=== PATIENT | female | born 1985 | race Caucasian/White ===

== ENCOUNTER → 2016-07-26 | Outpatient (CLI) | payer OTHER ==
--- NOTE | 2016-07-26 16:40 | REP ---
MRI LUMBAR SPINE WITHOUT CONTRAST: 07/26/2016. Clinical history: Low back pain, sacral ileitis, lumbar spondylosis. No prior study. Technique: Sagittal T1, T2 and STIR images with axial T1 and T2 sequences provided. Findings: The normal lumbar lordosis is maintained. Disc space is narrowed at L5-S1 with some loss of disc water signal. There are discogenic endplate changes at this level although mild. The disc space heights at the other levels show only slight narrowing at the T12-L1 level and loss of disc water signal. Vertebral body heights and marrow signal are normal throughout. Conus terminates at L1. The T11-12 level shows no disc bulge or herniation and no spinal or foraminal stenosis. At T12-L1 minimal disc bulge present without spinal or foraminal stenosis. At L1-2 there is mild broad-based disc bulge without central canal stenosis or foraminal encroachment. No disc herniation. At L2-L3 and L3-L4, there is no disc bulge or herniation and no spinal or foraminal stenosis. At L4-L5 there is a broad-based disc bulge with central disc protrusion with mild extrusion inferiorly in the midline. This indents the ventral thecal sac and abuts the L5 roots but does not displace. The cross-sectional area of the neural canal was adequate. The foramina show some loss of perineural fat but no definite nerve root compression of the L4 roots at this level. At L5-S1 there is a mild broad-based disc bulge that abuts the ventral thecal sac slightly indenting it but not the S1 nerve roots. Cross-sectional area of the canal adequate. The foramina are adequate without nerve root compression. Impression: 1. Multilevel degenerative disc disease greatest at L4-5. Disc bulge and extrusion centrally and with lesser disc bulging at L1-2. I do not see foraminal encroachment. The disc protrusion abuts the L5 roots in the central canal at L4-5. No definite nerve root compression in the foramina. No compression deformity or destructive lesion. Signed by Wil Mejia MD 07/26/2016 04:51 P
== END ==
LOC: M RAD 14:00
PROVIDERS: ATTEND Pain Medicine Interventional Pain Medicine
DX: M54.5 Low back pain (principal)

== ENCOUNTER → 2016-12-12 | Outpatient (REF) | payer OTHER ==
[2016-12-12 16:07] LABS: PROGESTERONE < 0.2 NG/ML
[2016-12-12 16:08] LABS: ESTRADIOL 62.7 PG/ML; FOLLICLE STIMULATING HORMONE 7.6 mIU/mL
[2016-12-12 16:09] LABS: ALBUMIN 3.7 GM/DL (3.2-5.2); ALBUMIN/GLOBULIN RATIO 1.09 (1.00-1.93); ALKALINE PHOSPHATASE 90 U/L (45-117); ALT/SGPT 21 U/L (12-78); ANION GAP 7 MEQ/L (8-16); AST/SGOT 14 U/L (15-37); BILIRUBIN,TOTAL 0.4 MG/DL (0.2-1.0); BLOOD UREA NITROGEN 10 MG/DL (7-18); CALCIUM LEVEL 8.7 MG/DL (8.5-10.1); CARBON DIOXIDE LEVEL 30 MEQ/L (21-32); CHLORIDE LEVEL 102 MEQ/L (98-107); CREATININE FOR GFR 0.54 MG/DL (0.55-1.02); FREE T4 1.07 NG/DL (0.76-1.46); GLOMERULAR FILTRATION RATE > 60.0 (>60); GLUCOSE, FASTING 79 MG/DL (70-105); POTASSIUM SERUM 4.9 MEQ/L (3.5-5.1); SODIUM LEVEL 139 MEQ/L (136-145); TOTAL PROTEIN 7.1 GM/DL (6.4-8.2)
[2016-12-15 00:07] LABS: ESTRONE SERUM 71 pg/mL (.); SEX HORMONE BINDING GLOBULIN 66.5 nmol/L (24.6-122.0)
== END ==
LOC: M LAB REF 12:43
PROVIDERS: ATTEND Obstetrics & Gynecology
DX: E28.2 Polycystic ovarian syndrome (principal); N95.1 Menopausal and female climacteric states

== ENCOUNTER → 2018-09-23 | Outpatient (REF) ==
[~2018-09-23] MED LIST: AMIT10TA OR; FLUT11IN INH; LEVOTAB10 OR; LORA2TAB9 OR; LYRI150C OR; METF-839 OR; ROPI0.253 OR; SERT-138 OR; SING10TA32 PO; TIZA-208 OR; VENTAER INH; VITA1CAP25 PO; VYVA40CA3 PO; ZANTTAB PO; ZOFR4TAB16 PO
== END ==
LOC: M LAB LCGH 15:09
PROVIDERS: ATTEND Nurse Practitioner Family
DX: Z12.4 Encounter for screening for malignant neoplasm of cervix (principal)

== ENCOUNTER → 2018-11-13 | Outpatient (CLI) | payer OTHER ==
[~2018-11-13] MED LIST changes: +AUGM500T34 PO; +HYDR200T3 PO; -TIZA-208 OR; +TIZA4TAB4 OR; +VITA500C13 PO; +[UNRECOGNIZED DRUG - CODE] PO
--- NOTE | 2018-11-13 13:50 | REP ---
Clinical: Spondylosis . Technique: AP, lateral, flexion/extension, bilateral oblique, and open-mouth views. Findings: Alignment and lordosis is maintained. There is no evidence for acute fracture / compression injury or subluxation. No significant degenerative changes are appreciated. Oblique views demonstrate patent neural foramen. Open mouth view demonstrates normal C1-C2 articulation and odontoid process. Impression: Normal, age-appropriate cervical spine series. Electronically Signed by Walker Neely MD 11/13/2018 01:42 P
== END ==
LOC: M RAD 12:33
PROVIDERS: ATTEND Nurse Practitioner Family
DX: M47.812 Spondylosis without myelopathy or radiculopathy, cervical region (principal)

== ENCOUNTER 2019-03-25 07:00 | Day surgery (SDC) | payer OTHER ==
[~2019-03-25] VITALS: Ht 167.6 cm; Wt 99.8 kg
[~2019-03-25 07:00] MED LIST changes: -AMIT10TA OR; +AMIT10TA PO; +BACL10TA2 PO; -LEVOTAB10 OR; +LEVOTAB10 PO; -LORA2TAB9 OR; +LORA2TAB9 PO; -LYRI150C OR; +LYRI150C PO; -METF-839 OR; +METF-839 PO; -ROPI0.253 OR; +ROPI0.253 PO; -SERT-138 OR; +SERT-138 PO; -TIZA4TAB4 OR; +TIZA4TAB4 PO; +ZANT150T40 PO; -ZANTTAB PO
[2019-03-25] MEDS ORDERED: PROPOFOL 200 MG/20 ML VIAL As Ordered ONE ×3 (07:11→10:03)
[2019-03-25] MEDS ORDERED: LIDOCAINE 2% INJ 100 MG/5 ML SDV (FOR ANES.) As Ordered ONE (07:11)
[2019-03-25] MEDS ORDERED: ROCURONIUM BROMIDE 50 MG/5 ML VIAL As Ordered ONE ×2 (07:11→09:52)
[2019-03-25 07:26] LABS: HEMATOCRIT 43.9 % (36.0-47.0); HEMOGLOBIN 14.4 g/dl (12.0-15.5); MEAN CORPUSCULAR HEMOGLOBIN 30.6 pg (27.0-33.0); MEAN CORPUSCULAR HGB CONC 32.8 g/dl (32.0-36.5); MEAN CORPUSCULAR VOLUME 93.2 fl (80.0-96.0); PLATELET COUNT, AUTOMATED 254 10^3/uL (150-450); RED BLOOD COUNT 4.71 10^6/uL (4.00-5.40)
[2019-03-25 08:01] LABS: URINE PREG TEST NEGATIVE (NEGATIVE)
[2019-03-25] MEDS ORDERED: SCOPOLAMINE 1MG TRANSDERMAL PATCH As Ordered ONE (08:07)
[2019-03-25] MEDS ORDERED: LR 1,000 ML IV ONE (08:15)
[2019-03-25] MEDS ORDERED: dexameTHASONE 4 MG/ML 1ML VIAL (J1100) As Ordered ONE (08:19)
[2019-03-25] MEDS ORDERED: ONDANSETRON 4MG/2ML VIAL (J2405) As Ordered ONE (08:20)
[2019-03-25] MEDS ORDERED: fentaNYL 250 MCG/5 ML INJECTION (J3010) As Ordered ONE (08:24)
[2019-03-25] MEDS ORDERED: MIDAZOLAM INJ 2 MG/2 ML VIAL (J2250) As Ordered ONE (08:25)
[2019-03-25] MEDS ORDERED: LIDOCAINE W/EPINEPHRINE 1% 20ML VIAL As Ordered ONE (08:58)
[2019-03-25] MEDS ORDERED: METHYLENE BLUE 0.5% (5MG/ML) 10 ML AMP (PROVAYBLUE)(Q9968 PER 1MG) As Ordered ONE (08:58)
[2019-03-25] MEDS ORDERED: EPINEPHrine 1MG/ML INJ 30ML MD-VIAL As Ordered ONE (08:58)
[2019-03-25] MEDS ORDERED: LACRILUBE (AKWA TEARS) OPHTH OINT 3.5 GM As Ordered ONE (08:59)
[2019-03-25] MEDS ORDERED: METOCLOPRAMIDE INJ 10MG/2ML VIAL (J2765) As Ordered ONE (09:32)
[2019-03-25] MEDS ORDERED: SUGAMMADEX SODIUM 500 MG/5 ML VIAL (BRIDION) As Ordered ONE (09:38)
[2019-03-25] MEDS ORDERED: diphenhydrAMINE INJ 50MG/ML VIAL (J1200) As Ordered ONE (10:11)
[2019-03-25] MEDS ORDERED: BALANCED SALT SOLN OPHTH 15 ML BTL As Ordered ONE (10:21)
[2019-03-25] MEDS ORDERED: fentaNYL 100 MCG/2 ML INJECTION (J3010) IV PRN (10:45)
[2019-03-25] MEDS ORDERED: LR 1,000 ML IV SCH ×2 (10:45)
[2019-03-25] MEDS ORDERED: ACETAMINOPH W/CODEINE #3 TAB UD PO PRN (10:45)
[2019-03-25] MEDS ORDERED: ONDANSETRON 4MG/2ML VIAL (J2405) IV PRN (10:45)
[2019-03-25 11:29] VITALS: BP 123/70
--- NOTE | 2019-03-26 09:41 | RO ---
DATE OF PROCEDURE: 03/25/2019 PREOPERATIVE DIAGNOSIS: Chronic left maxillary sinusitis. POSTOPERATIVE DIAGNOSIS: Chronic left maxillary sinusitis. OPERATIVE PROCEDURE: Left intranasal and radical antrostomy and biopsy of the maxillary sinus mucosa. SURGEON: Dr. Antwan Sosa PANEL GLUER: ANESTHESIA: DESCRIPTION OF PROCEDURE/FINDINGS: There was a hypertrophic middle turbinate on the left side. There was a little inflammation in the anterior portion, and I biopsied this area as well. I used the microdebrider to remove the lateral portion of the middle turbinate on that left side. I used pledgets of adrenaline 1:1000 and infiltrated with lidocaine with epinephrine. Once it was all removed with forceps and the debrider, I then identified the uncinate process. I elevated that and removed that. I then identified the natural sinus osteum and enlarged that opening. At the antrostomy site, I did do biopsies. I then made an incision inside the mouth and divided the mucosa in the upper left gingivolabial sulcus. I dissected down to the maxilla on the left side and made incision in periosteum, elevated periosteum superiorly, inferiorly, medial, and laterally. Once I had a window, I then used the osteotome to enter into the maxillary sinus. I sent portions of that bone for pathology. I then opened it up, and there was hypertrophic mucosa anteriorly. I did a number of biopsies of the mucosa. I used the rongeur to enlarge the opening anteriorly. Once this was done, then I closed the anterior incision with a #3-0 chromic suture. The area was dry afterwards. I did lose about 10 mL estimated blood loss. I put a Propel implant stent in the ostiomeatal complex area on that left side. Patient tolerated the procedure well, was extubated and transferred to recovery room in excellent condition.
== END 2019-03-25 11:33 | disposition home or self-care (01) ==
LOC: M SDC 07:00
PROVIDERS: ATTEND Otolaryngology
DX: J32.0 Chronic maxillary sinusitis (principal); K21.9 Gastro-esophageal reflux disease without esophagitis; D64.9 Anemia, unspecified; M06.9 Rheumatoid arthritis, unspecified; F41.9 Anxiety disorder, unspecified; G43.909 Migraine, unspecified, not intractable, without status migrainosus; J45.909 Unspecified asthma, uncomplicated; Z79.899 Other long term (current) drug therapy
CPT/HCPCS: 31267; 36415; 84703; 85027; 88305; 88311; C2625; J1100; J1200; J2250; J2405; J2765; J3010; Q9968

== ENCOUNTER 2021-08-24 19:54 | Inpatient (IN) | payer OTHER ==
[~2021-08-24] VITALS: Ht 167.6 cm; Wt 140.2 kg
[~2021-08-24 19:54] MED LIST changes: -AMIT10TA PO; +AMIT10TA7 PO; +B-1225002 SL; +LORA2TAB14 PO; -LORA2TAB9 PO; +TIZA10TA PO; -TIZA4TAB4 PO; +TOPA1TAB PO; -VITA500C13 PO; +VITA500C17 PO
[2021-08-24 21:28] LABS: HEMATOCRIT 37.8 % (36.0-47.0); HEMOGLOBIN 12.1 g/dl (12.0-15.5); MEAN CORPUSCULAR HEMOGLOBIN 27.6 pg (27.0-33.0); MEAN CORPUSCULAR VOLUME 86.3 fl (80.0-96.0); PLATELET COUNT, AUTOMATED 291 10^3/uL (150-450); RED BLOOD COUNT 4.38 10^6/uL (4.00-5.40); WHITE BLOOD COUNT 11.1 10^3/uL (4.0-10.0)
[2021-08-24 21:44] LABS: AMPHETAMINES LEVEL URINE NEGATIVE (NEGATIVE); BARBITURATES URINE NEGATIVE (NEGATIVE); BENZODIAZEPINES URINE NEGATIVE (NEGATIVE); CANNABINOIDS URINE NEGATIVE (NEGATIVE); COCAINE METABOLITE URINE NEGATIVE (NEGATIVE); METHADONE URINE NEGATIVE (NEGATIVE); OPIATES URINE NEGATIVE (NEGATIVE); PHENCYCLIDINE URINE NEGATIVE (NEGATIVE)
[2021-08-24 21:57] LABS: ACETAMINOPHEN LEVEL < 2.0 UG/ML (10.0-30.0); ALBUMIN 3.4 GM/DL (3.2-5.2); ALT/SGPT 22 U/L (12-78); BILIRUBIN,DIRECT 0.1 MG/DL (0.0-0.2); BILIRUBIN,TOTAL 0.2 MG/DL (0.2-1.0); BLOOD UREA NITROGEN 8 MG/DL (7-18); CALCIUM LEVEL 8.2 MG/DL (8.5-10.1); CARBON DIOXIDE LEVEL 29 MEQ/L (21-32); CHLORIDE LEVEL 106 MEQ/L (98-107); CREATININE FOR GFR 0.44 MG/DL (0.55-1.30); ETHYL ALCOHOL (ETHANOL) < 0.003 % (0.000-0.010); GLOMERULAR FILTRATION RATE > 60.0 (>60); GLUCOSE, FASTING 102 MG/DL (70-100); POTASSIUM SERUM 3.8 MEQ/L (3.5-5.1); SALICYLATE LEVEL < 1.7 MG/DL (5.0-30.0); SODIUM LEVEL 141 MEQ/L (136-145); TOTAL PROTEIN 6.3 GM/DL (6.4-8.2)
[2021-08-25] MEDS ORDERED: PREG200C PO (02:04)
[2021-08-25] MEDS ORDERED: DULO30CA9 PO (02:04)
[2021-08-25] MEDS ORDERED: LOSA50TA5 PO (02:04)
[2021-08-25] MEDS ORDERED: ZOLO100T PO (02:04)
[2021-08-25] MEDS ORDERED: ALBU8.5H INH (02:04)
[2021-08-25] MEDS ORDERED: NAPR500T6 PO (02:04)
[2021-08-25] MEDS ORDERED: MAXA10TA14 PO (02:04)
[2021-08-25] MEDS ORDERED: SULF500T2 PO (02:04)
[2021-08-25] MEDS ORDERED: ONDA-195 PO (02:04)
[2021-08-25] MEDS ORDERED: HOME MED LIST COMPLETE! XX SCH (02:05)
[2021-08-25] MEDS ORDERED: MOM 30ML SUSPENSION UDC PO PRN (04:20)
[2021-08-25] MEDS ORDERED: MAALOX 30 ML SUSP *UDC PO PRN (04:20)
[2021-08-25] MEDS ORDERED: hydrOXYzine 50 MG TAB PO PRN (04:25)
[2021-08-25 05:48] VITALS: BP 125/72
[2021-08-25] MEDS: ACETAMINOPHEN TAB 650MG DOSE (2X325MG) PO PRN ×2 (09:55→22:25)
[2021-08-25] MEDS: DULoxetine 20 MG CAP (CYMBALTA) PO SCH (12:20)
[2021-08-25] MEDS: hydroCHLOROthiazide 12.5 MG CAPSULE PO SCH (12:22)
[2021-08-25] MEDS: HYDROXYCHLOROQUINE 200 MG TAB PO SCH (12:23)
[2021-08-25] MEDS: sulfaSALAzine 500 MG TABEC PO SCH ×2 (12:23→22:06)
[2021-08-25] MEDS: MONTELUKAST 10 MG TAB PO SCH (12:24)
[2021-08-25] MEDS: SERTRALINE 100 MG TAB PO SCH (12:24)
[2021-08-25] MEDS: LOSARTAN 50MG TABLET PO SCH (12:25)
[2021-08-25] MEDS: tiZANidine 4 MG TAB PO PRN (12:26)
[2021-08-25 19:09] VITALS: BP 142/74
[2021-08-25] MEDS: traZODone 50 MG TAB PO PRN (22:22)
[2021-08-26 06:32] VITALS: BP 129/80
[2021-08-26] MEDS: SERTRALINE 100 MG TAB PO SCH (09:35)
[2021-08-26] MEDS: DULoxetine 20 MG CAP (CYMBALTA) PO SCH (09:35)
[2021-08-26] MEDS: MONTELUKAST 10 MG TAB PO SCH (09:35)
[2021-08-26] MEDS: sulfaSALAzine 500 MG TABEC PO SCH ×2 (09:35→20:28)
[2021-08-26] MEDS: hydroCHLOROthiazide 12.5 MG CAPSULE PO SCH (09:36)
[2021-08-26] MEDS: HYDROXYCHLOROQUINE 200 MG TAB PO SCH (09:36)
[2021-08-26] MEDS: LOSARTAN 50MG TABLET PO SCH (09:54)
[2021-08-26] MEDS: tiZANidine 4 MG TAB PO PRN ×2 (09:57→20:29)
[2021-08-26] MEDS: ACETAMINOPHEN TAB 650MG DOSE (2X325MG) PO PRN ×2 (09:59→17:21)
[2021-08-26 10:41] LABS: CHOLESTEROL RISK RATIO 2.854 (<5)
[2021-08-26] MEDS: LIDOCAINE 5% (LIDODERM) PATCH TD SCH (10:42)
[2021-08-26] MEDS: IBUPROFEN 600MG TAB PO PRN ×2 (14:12→20:29)
[2021-08-26 17:40] VITALS: BP 130/72
[2021-08-26] MEDS: traZODone 50 MG TAB PO PRN (20:28)
[2021-08-26] MEDS: **NOTE PATIENT COMMENT** MISC XX SCH (21:05)
[2021-08-27] MEDS: ACETAMINOPHEN TAB 650MG DOSE (2X325MG) PO PRN ×2 (05:59→14:58)
[2021-08-27 06:05] VITALS: BP 140/68
[2021-08-27] MEDS: LOSARTAN 50MG TABLET PO SCH (08:23)
[2021-08-27] MEDS: tiZANidine 4 MG TAB PO PRN ×2 (08:23→17:18)
[2021-08-27] MEDS: DULoxetine 30MG CAPSULE (CYMBALTA) PO SCH (08:23)
[2021-08-27] MEDS: MONTELUKAST 10 MG TAB PO SCH (08:23)
[2021-08-27] MEDS: HYDROXYCHLOROQUINE 200 MG TAB PO SCH (08:24)
[2021-08-27] MEDS: hydroCHLOROthiazide 12.5 MG CAPSULE PO SCH (08:24)
[2021-08-27] MEDS: SERTRALINE HCL 25 MG TABLET PO SCH (08:24)
[2021-08-27] MEDS: sulfaSALAzine 500 MG TABEC PO SCH ×2 (08:24→20:18)
[2021-08-27] MEDS: LIDOCAINE 5% (LIDODERM) PATCH TD SCH (08:25)
[2021-08-27] MEDS: IBUPROFEN 600MG TAB PO PRN ×2 (10:34→20:19)
[2021-08-27 16:16] VITALS: BP 141/75
[2021-08-27] MEDS: traZODone 50 MG TAB PO PRN (20:17)
[2021-08-27] MEDS: **NOTE PATIENT COMMENT** MISC XX SCH (20:18)
[2021-08-28] MEDS: tiZANidine 4 MG TAB PO PRN ×3 (01:20→23:06)
[2021-08-28] MEDS: ACETAMINOPHEN TAB 650MG DOSE (2X325MG) PO PRN ×3 (01:22→23:06)
[2021-08-28 06:33] VITALS: BP 124/60
[2021-08-28] MEDS: HYDROXYCHLOROQUINE 200 MG TAB PO SCH (08:05)
[2021-08-28] MEDS: hydroCHLOROthiazide 12.5 MG CAPSULE PO SCH (08:05)
[2021-08-28] MEDS: SERTRALINE HCL 25 MG TABLET PO SCH (08:05)
[2021-08-28] MEDS: sulfaSALAzine 500 MG TABEC PO SCH ×2 (08:05→21:27)
[2021-08-28] MEDS: DULoxetine 30MG CAPSULE (CYMBALTA) PO SCH (08:05)
[2021-08-28] MEDS: LOSARTAN 50MG TABLET PO SCH (08:06)
[2021-08-28] MEDS: LIDOCAINE 5% (LIDODERM) PATCH TD SCH (08:06)
[2021-08-28] MEDS: MONTELUKAST 10 MG TAB PO SCH (08:06)
[2021-08-28] MEDS: IBUPROFEN 600MG TAB PO PRN ×2 (08:10→18:10)
[2021-08-28 16:08] VITALS: BP 129/80
[2021-08-28] MEDS: traZODone 50 MG TAB PO PRN (21:27)
[2021-08-28] MEDS: **NOTE PATIENT COMMENT** MISC XX SCH (21:49)
[2021-08-29 06:58] VITALS: BP 132/79
[2021-08-29] MEDS: ACETAMINOPHEN TAB 650MG DOSE (2X325MG) PO PRN ×2 (08:31→21:14)
[2021-08-29] MEDS: SERTRALINE HCL 25 MG TABLET PO SCH (08:31)
[2021-08-29] MEDS: DULoxetine 30MG CAPSULE (CYMBALTA) PO SCH ×2 (08:31→21:13)
[2021-08-29] MEDS: MONTELUKAST 10 MG TAB PO SCH (08:31)
[2021-08-29] MEDS: hydroCHLOROthiazide 12.5 MG CAPSULE PO SCH (08:32)
[2021-08-29] MEDS: LOSARTAN 50MG TABLET PO SCH (08:33)
[2021-08-29] MEDS: HYDROXYCHLOROQUINE 200 MG TAB PO SCH (08:34)
[2021-08-29] MEDS: sulfaSALAzine 500 MG TABEC PO SCH ×2 (08:34→21:12)
[2021-08-29] MEDS: tiZANidine 4 MG TAB PO PRN ×2 (08:34→21:13)
[2021-08-29] MEDS: LIDOCAINE 5% (LIDODERM) PATCH TD SCH (09:57)
[2021-08-29] MEDS: IBUPROFEN 600MG TAB PO PRN (14:39)
[2021-08-29 18:09] VITALS: BP 115/76
[2021-08-29] MEDS: **NOTE PATIENT COMMENT** MISC XX SCH (21:15)
[2021-08-29] MEDS: traZODone 50 MG TAB PO PRN (22:55)
[2021-08-30 06:32] VITALS: BP 137/69
[2021-08-30] MEDS: ACETAMINOPHEN TAB 650MG DOSE (2X325MG) PO PRN (06:59)
[2021-08-30] MEDS: tiZANidine 4 MG TAB PO PRN (06:59)
[2021-08-30] MEDS ORDERED: ABIL1TAB11 PO (08:26)
[2021-08-30] MEDS ORDERED: TRAZ-252 PO (08:26)
[2021-08-30] MEDS ORDERED: SERT25TA21 PO (08:26)
[2021-08-30] MEDS ORDERED: LIDO5TD TD (08:26)
[2021-08-30] MEDS ORDERED: CYMB1CAP5 PO (08:26)
[2021-08-30] MEDS: SERTRALINE HCL 25 MG TABLET PO SCH (09:27)
[2021-08-30] MEDS: DULoxetine 30MG CAPSULE (CYMBALTA) PO SCH (09:28)
[2021-08-30 09:29] VITALS: BP 136/82
[2021-08-30] MEDS: sulfaSALAzine 500 MG TABEC PO SCH (09:29)
[2021-08-30] MEDS: MONTELUKAST 10 MG TAB PO SCH (09:29)
[2021-08-30] MEDS: LOSARTAN 50MG TABLET PO SCH (09:29)
[2021-08-30] MEDS: HYDROXYCHLOROQUINE 200 MG TAB PO SCH (09:30)
[2021-08-30] MEDS: hydroCHLOROthiazide 12.5 MG CAPSULE PO SCH (09:30)
[2021-08-30] MEDS: LIDOCAINE 5% (LIDODERM) PATCH TD SCH (09:30)
[2021-08-31] MEDS ORDERED: PREG200C (16:55)
[2021-08-31] MEDS ORDERED: LORA2TAB14 (16:55)
== END 2021-08-30 12:57 | disposition home or self-care (01) | DRG 885 ==
LOC: M ED 19:54 → M ED INP 19:55 → M PSY 08-25 05:25
PROVIDERS: ADMIT Psychiatry & Neurology Psychiatry; ATTEND Student in an Organized Health Care Education/Training Program
DX: F33.1 Major depressive disorder, recurrent, moderate (principal); D68.59 Other primary thrombophilia; R45.851 Suicidal ideations; F60.3 Borderline personality disorder; F18.9 Inhalant use, unspecified; F43.8 Other reactions to severe stress; F41.9 Anxiety disorder, unspecified; Z79.899 Other long term (current) drug therapy; J45.909 Unspecified asthma, uncomplicated; K21.9 Gastro-esophageal reflux disease without esophagitis; M19.90 Unspecified osteoarthritis, unspecified site; D50.9 Iron deficiency anemia, unspecified; R56.9 Unspecified convulsions; I10 Essential (primary) hypertension

== ENCOUNTER 2021-08-31 16:32 | Inpatient (IN) | payer OTHER ==
[~2021-08-31] VITALS: Ht 167.6 cm; Wt 140.3 kg
[~2021-08-31 16:32] MED LIST changes: +ABIL1TAB11 PO; +ALBU8.5H INH; +CYMB1CAP5 PO; +DULO30CA9 PO; +LIDO5TD TD; +LOSA50TA5 PO; +MAXA10TA14 PO; +NAPR500T6 PO; +ONDA-195 PO; +PREG200C PO; +SERT25TA21 PO; +SULF500T2 PO; +TRAZ-252 PO; +ZOLO100T PO
[2021-08-31] MEDS ORDERED: PREG200C (16:55)
[2021-08-31] MEDS ORDERED: LORA2TAB14 (16:55)
[2021-08-31 18:10] LABS: ACETAMINOPHEN LEVEL < 2.0 UG/ML (10.0-30.0); ALBUMIN 3.8 GM/DL (3.2-5.2); ALT/SGPT 19 U/L (12-78); BILIRUBIN,DIRECT < 0.1 MG/DL (0.0-0.2); BILIRUBIN,TOTAL 0.2 MG/DL (0.2-1.0); BLOOD UREA NITROGEN 16 MG/DL (7-18); CALCIUM LEVEL 8.7 MG/DL (8.5-10.1); CARBON DIOXIDE LEVEL 26 MEQ/L (21-32); CHLORIDE LEVEL 107 MEQ/L (98-107); CREATININE FOR GFR 0.57 MG/DL (0.55-1.30); ETHYL ALCOHOL (ETHANOL) < 0.003 % (0.000-0.010); GLOMERULAR FILTRATION RATE > 60.0 (>60); GLUCOSE, FASTING 69 MG/DL (70-100); POTASSIUM SERUM 3.3 MEQ/L (3.5-5.1); SALICYLATE LEVEL 1.7 MG/DL (5.0-30.0); SODIUM LEVEL 139 MEQ/L (136-145); TOTAL PROTEIN 6.9 GM/DL (6.4-8.2)
[2021-08-31 18:31] LABS: HCG, SERUM QUALITATIVE NEGATIVE (NEGATIVE)
[2021-08-31 18:37] LABS: AMPHETAMINES LEVEL URINE NEGATIVE (NEGATIVE); BARBITURATES URINE NEGATIVE (NEGATIVE); BENZODIAZEPINES URINE NEGATIVE (NEGATIVE); CANNABINOIDS URINE NEGATIVE (NEGATIVE); COCAINE METABOLITE URINE NEGATIVE (NEGATIVE); METHADONE URINE NEGATIVE (NEGATIVE); OPIATES URINE NEGATIVE (NEGATIVE); PHENCYCLIDINE URINE NEGATIVE (NEGATIVE)
[2021-08-31 19:14] LABS: HEMOGLOBIN 12.7 g/dl (12.0-15.5); MEAN CORPUSCULAR HEMOGLOBIN 27.9 pg (27.0-33.0); MEAN CORPUSCULAR HGB CONC 32.6 g/dl (32.0-36.5); MEAN CORPUSCULAR VOLUME 85.5 fl (80.0-96.0); PLATELET COUNT, AUTOMATED 326 10^3/uL (150-450); RED BLOOD COUNT 4.56 10^6/uL (4.00-5.40); WHITE BLOOD COUNT 13.4 10^3/uL (4.0-10.0)
[2021-08-31 20:28] LABS: RSV AMPLIFICATION NEGATIVE (NEGATIVE)
[2021-08-31] MEDS ORDERED: DULoxetine 30MG CAPSULE (CYMBALTA) PO ONE (21:50)
[2021-08-31] MEDS ORDERED: traZODone 100 MG TAB PO ONE (21:50)
[2021-09-01] MEDS ORDERED: ACETAMINOPHEN TAB 650MG DOSE (2X325MG) PO ONE (06:10)
[2021-09-01] MEDS ORDERED: LYRI200C PO (06:55)
[2021-09-01] MEDS ORDERED: HOME MED LIST COMPLETE! XX SCH (06:55)
[2021-09-01] MEDS ORDERED: SERT25TA21 PO (06:55)
[2021-09-01] MEDS ORDERED: TRAZ-252 PO (06:55)
[2021-09-01] MEDS ORDERED: DULO1CAP5 PO (06:55)
[2021-09-01] MEDS ORDERED: ABIL1TAB11 PO (06:55)
[2021-09-01] MEDS ORDERED: LIDO5TD TOP (06:55)
[2021-09-01] MEDS ORDERED: ATIV2TAB PO (06:55)
[2021-09-01] MEDS ORDERED: traZODone 50 MG TAB PO PRN (07:30)
[2021-09-01] MEDS ORDERED: ONDANSETRON 4 MG ORAL DISINTEGRATING TAB PO PRN (07:30)
[2021-09-01] MEDS ORDERED: RIZATRIPTAN BENZOATE 10 MG TAB PO PRN (07:35)
[2021-09-01] MEDS ORDERED: ALBUTEROL 90 MCG/ACT 8GM HFA INHALER INH PRN (07:35)
[2021-09-01] MEDS ORDERED: POTASSIUM CHLORIDE 10MEQ SR TABLET PO ONE (07:40)
[2021-09-01] MEDS: sulfaSALAzine 500 MG TABEC PO SCH ×2 (08:15→21:08)
[2021-09-01] MEDS: LOSARTAN 50MG TABLET PO SCH (08:15)
[2021-09-01] MEDS: PREGABALIN 100 MG CAP (LYRICA) PO SCH ×3 (08:16→20:27)
[2021-09-01] MEDS: MONTELUKAST 10 MG TAB PO SCH (08:16)
[2021-09-01] MEDS: hydroCHLOROthiazide 12.5 MG CAPSULE PO SCH (08:17)
[2021-09-01] MEDS: SERTRALINE HCL 25 MG TABLET PO SCH (08:18)
[2021-09-01] MEDS: tiZANidine 4 MG TAB PO SCH ×4 (08:18→20:28)
[2021-09-01] MEDS: DULoxetine 30MG CAPSULE (CYMBALTA) PO SCH ×2 (08:19→20:27)
[2021-09-01] MEDS: HYDROXYCHLOROQUINE 200 MG TAB PO SCH (08:20)
[2021-09-01] MEDS ORDERED: LORazepam 2 MG TAB PO SCH (21:00)
[2021-09-02] MEDS: NAPROXEN 250 MG TAB PO PRN ×3 (00:41→23:44)
[2021-09-02] MEDS: tiZANidine 4 MG TAB PO SCH ×2 (08:51→13:00)
[2021-09-02] MEDS: LOSARTAN 50MG TABLET PO SCH (08:51)
[2021-09-02] MEDS: DULoxetine 30MG CAPSULE (CYMBALTA) PO SCH ×2 (08:51→21:21)
[2021-09-02] MEDS: SERTRALINE HCL 25 MG TABLET PO SCH (08:51)
[2021-09-02] MEDS: PREGABALIN 100 MG CAP (LYRICA) PO SCH (08:51)
[2021-09-02] MEDS: MONTELUKAST 10 MG TAB PO SCH (08:52)
[2021-09-02] MEDS: hydroCHLOROthiazide 12.5 MG CAPSULE PO SCH (08:52)
[2021-09-02] MEDS: sulfaSALAzine 500 MG TABEC PO SCH ×2 (11:00→21:23)
[2021-09-02] MEDS: HYDROXYCHLOROQUINE 200 MG TAB PO SCH (11:00)
[2021-09-02] MEDS ORDERED: ONDANSETRON 4 MG TAB PO PRN (13:55)
[2021-09-02] MEDS ORDERED: MAALOX 30 ML SUSP *UDC PO PRN (13:55)
[2021-09-02] MEDS ORDERED: ALBUTEROL 90 MCG/ACT 8GM HFA INHALER INH PRN (13:55)
[2021-09-02] MEDS ORDERED: MOM 30ML SUSPENSION UDC PO PRN (13:55)
[2021-09-02] MEDS ORDERED: RIZATRIPTAN BENZOATE 10 MG TAB PO PRN (13:55)
[2021-09-02 15:25] VITALS: BP 133/70
[2021-09-02] MEDS: ACETAMINOPHEN TAB 650MG DOSE (2X325MG) PO PRN (18:14)
[2021-09-02] MEDS: **NOTE PATIENT COMMENT** MISC XX SCH (20:21)
[2021-09-02] MEDS: traZODone 50 MG TAB PO PRN (23:43)
[2021-09-03] MEDS: ACETAMINOPHEN TAB 650MG DOSE (2X325MG) PO PRN (05:47)
[2021-09-03 07:04] VITALS: BP 123/65
[2021-09-03] MEDS: sulfaSALAzine 500 MG TABEC PO SCH ×2 (09:06→20:45)
[2021-09-03] MEDS: SERTRALINE HCL 25 MG TABLET PO SCH (09:06)
[2021-09-03] MEDS: hydroCHLOROthiazide 12.5 MG CAPSULE PO SCH (09:06)
[2021-09-03] MEDS: MONTELUKAST 10 MG TAB PO SCH (09:07)
[2021-09-03] MEDS: LOSARTAN 50MG TABLET PO SCH (09:07)
[2021-09-03] MEDS: DULoxetine 30MG CAPSULE (CYMBALTA) PO SCH ×2 (09:07→20:46)
[2021-09-03] MEDS: HYDROXYCHLOROQUINE 200 MG TAB PO SCH (10:55)
[2021-09-03] MEDS: LIDOCAINE 5% (LIDODERM) PATCH TOP PRN (10:56)
[2021-09-03] MEDS: NAPROXEN 250 MG TAB PO PRN ×2 (12:54→22:14)
[2021-09-03] MEDS: PREGABALIN 100 MG CAP (LYRICA) PO SCH ×2 (16:27→20:45)
[2021-09-03 18:46] VITALS: BP 135/80
[2021-09-03] MEDS: **NOTE PATIENT COMMENT** MISC XX SCH (20:38)
[2021-09-03] MEDS: LORazepam 2 MG TAB PO PRN (20:46)
[2021-09-03] MEDS: traZODone 50 MG TAB PO PRN (22:12)
[2021-09-04 06:41] VITALS: BP 125/75
[2021-09-04] MEDS: MONTELUKAST 10 MG TAB PO SCH (08:43)
[2021-09-04] MEDS: DULoxetine 30MG CAPSULE (CYMBALTA) PO SCH ×2 (08:43→20:31)
[2021-09-04] MEDS: SERTRALINE HCL 25 MG TABLET PO SCH (08:43)
[2021-09-04] MEDS: PREGABALIN 100 MG CAP (LYRICA) PO SCH ×3 (08:43→20:31)
[2021-09-04] MEDS: LOSARTAN 50MG TABLET PO SCH (08:45)
[2021-09-04] MEDS: hydroCHLOROthiazide 12.5 MG CAPSULE PO SCH (08:45)
[2021-09-04] MEDS: HYDROXYCHLOROQUINE 200 MG TAB PO SCH (08:45)
[2021-09-04] MEDS: sulfaSALAzine 500 MG TABEC PO SCH ×2 (08:45→20:31)
[2021-09-04] MEDS: LIDOCAINE 5% (LIDODERM) PATCH TOP PRN (10:20)
[2021-09-04 18:47] VITALS: BP 120/67
[2021-09-04] MEDS: LORazepam 2 MG TAB PO PRN (20:31)
[2021-09-04] MEDS: ACETAMINOPHEN TAB 650MG DOSE (2X325MG) PO PRN (20:33)
[2021-09-04] MEDS: **NOTE PATIENT COMMENT** MISC XX SCH (20:34)
[2021-09-04] MEDS: traZODone 50 MG TAB PO PRN (21:21)
[2021-09-05] MEDS: ACETAMINOPHEN TAB 650MG DOSE (2X325MG) PO PRN (04:55)
[2021-09-05 06:33] VITALS: BP 118/66
[2021-09-05] MEDS: PREGABALIN 100 MG CAP (LYRICA) PO SCH ×3 (08:24→20:10)
[2021-09-05] MEDS: sulfaSALAzine 500 MG TABEC PO SCH ×2 (08:25→20:09)
[2021-09-05] MEDS: HYDROXYCHLOROQUINE 200 MG TAB PO SCH (08:25)
[2021-09-05] MEDS: DULoxetine 30MG CAPSULE (CYMBALTA) PO SCH ×2 (08:25→20:09)
[2021-09-05] MEDS: MONTELUKAST 10 MG TAB PO SCH (08:25)
[2021-09-05] MEDS: SERTRALINE HCL 25 MG TABLET PO SCH (08:25)
[2021-09-05] MEDS: hydroCHLOROthiazide 12.5 MG CAPSULE PO SCH (08:25)
[2021-09-05] MEDS: LOSARTAN 50MG TABLET PO SCH (08:27)
[2021-09-05] MEDS: LIDOCAINE 5% (LIDODERM) PATCH TOP PRN (08:29)
[2021-09-05] MEDS ORDERED: tiZANidine 4 MG TAB PO SCH (13:00)
[2021-09-05 16:21] VITALS: BP 122/58
[2021-09-05] MEDS ORDERED: hydrOXYzine 50 MG TAB PO PRN (20:55)
[2021-09-05] MEDS: **NOTE PATIENT COMMENT** MISC XX SCH (20:57)
[2021-09-05] MEDS: traZODone 50 MG TAB PO PRN (23:02)
[2021-09-06 06:34] VITALS: BP 135/71
[2021-09-06] MEDS: DULoxetine 30MG CAPSULE (CYMBALTA) PO SCH ×2 (08:23→20:14)
[2021-09-06] MEDS: HYDROXYCHLOROQUINE 200 MG TAB PO SCH (08:23)
[2021-09-06] MEDS: MONTELUKAST 10 MG TAB PO SCH (08:23)
[2021-09-06] MEDS: sulfaSALAzine 500 MG TABEC PO SCH ×2 (08:23→20:14)
[2021-09-06] MEDS: PREGABALIN 100 MG CAP (LYRICA) PO SCH (08:23)
[2021-09-06] MEDS: NAPROXEN 250 MG TAB PO PRN ×2 (08:24→20:14)
[2021-09-06] MEDS: SERTRALINE HCL 25 MG TABLET PO SCH (08:25)
[2021-09-06] MEDS: hydroCHLOROthiazide 12.5 MG CAPSULE PO SCH (08:27)
[2021-09-06] MEDS: LIDOCAINE 5% (LIDODERM) PATCH TOP PRN (08:27)
[2021-09-06] MEDS: LOSARTAN 50MG TABLET PO SCH (08:27)
[2021-09-06] MEDS: ACETAMINOPHEN TAB 650MG DOSE (2X325MG) PO PRN ×2 (14:43→22:40)
[2021-09-06 16:27] VITALS: BP 118/78
[2021-09-06 17:24] LABS: BLOOD UREA NITROGEN 11 MG/DL (7-18); CALCIUM LEVEL 8.6 MG/DL (8.5-10.1); CARBON DIOXIDE LEVEL 30 MEQ/L (21-32); CHLORIDE LEVEL 107 MEQ/L (98-107); CREATININE FOR GFR 0.61 MG/DL (0.55-1.30); GLOMERULAR FILTRATION RATE > 60.0 (>60); GLUCOSE, FASTING 115 MG/DL (70-100); POTASSIUM SERUM 3.8 MEQ/L (3.5-5.1); SODIUM LEVEL 140 MEQ/L (136-145)
[2021-09-06] MEDS: **NOTE PATIENT COMMENT** MISC XX SCH (20:15)
[2021-09-06] MEDS: traZODone 50 MG TAB PO PRN (22:40)
[2021-09-07 06:19] VITALS: BP 145/85
[2021-09-07] MEDS: ACETAMINOPHEN TAB 650MG DOSE (2X325MG) PO PRN (08:07)
[2021-09-07] MEDS: SERTRALINE HCL 25 MG TABLET PO SCH (08:07)
[2021-09-07] MEDS: MONTELUKAST 10 MG TAB PO SCH (08:07)
[2021-09-07] MEDS: DULoxetine 30MG CAPSULE (CYMBALTA) PO SCH (08:07)
[2021-09-07] MEDS: sulfaSALAzine 500 MG TABEC PO SCH (08:08)
[2021-09-07 08:10] VITALS: BP 138/88
[2021-09-07] MEDS: HYDROXYCHLOROQUINE 200 MG TAB PO SCH (08:10)
[2021-09-07] MEDS: LOSARTAN 50MG TABLET PO SCH (08:10)
[2021-09-07] MEDS: LIDOCAINE 5% (LIDODERM) PATCH TOP PRN (08:13)
[2021-09-07] MEDS ORDERED: FUROSEMIDE 40 MG TAB PO ONE (09:00)
[2021-09-07] MEDS ORDERED: HYDR12CA PO (10:03)
[2021-09-08] MEDS ORDERED: FUROSEMIDE 40 MG TAB PO ONE (09:00)
[2021-09-09] MEDS ORDERED: hydroCHLOROthiazide 12.5 MG CAPSULE PO SCH (09:00)
== END 2021-09-07 11:52 | disposition home or self-care (01) | DRG 885 ==
LOC: M ED 16:32 → M ED INP 09-02 13:51 → M PSY 09-02 15:18
PROVIDERS: ADMIT Student in an Organized Health Care Education/Training Program; ATTEND Student in an Organized Health Care Education/Training Program
DX: F33.1 Major depressive disorder, recurrent, moderate (principal); R45.851 Suicidal ideations; D68.59 Other primary thrombophilia; F60.3 Borderline personality disorder; Z79.899 Other long term (current) drug therapy; G43.909 Migraine, unspecified, not intractable, without status migrainosus; K21.9 Gastro-esophageal reflux disease without esophagitis; M19.90 Unspecified osteoarthritis, unspecified site; D50.9 Iron deficiency anemia, unspecified; J45.909 Unspecified asthma, uncomplicated; F18.10 Inhalant abuse, uncomplicated; I10 Essential (primary) hypertension; M06.9 Rheumatoid arthritis, unspecified

== ENCOUNTER → 2024-05-03 | Outpatient (CLI) | payer OTHER ==
[~2024-05-03] MED LIST changes: +ATIV2TAB PO; +DULO1CAP5 PO; -FLUT11IN INH; +FLUT12AE6 INH; +HYDR12CA PO; -HYDR200T3 PO; +HYDR200T46 PO; +LIDO5TD TOP; +LORA2TAB14; +LYRI200C PO; -MAXA10TA14 PO; +MONT-5 PO; +NAPR-1405 PO; -NAPR500T6 PO; -PREG200C PO; +PREG200C2; +PREG200C2 PO; +RIZA10TA64 PO; -ROPI0.253 PO; +ROPI5TAB19 PO; -SING10TA32 PO
== END ==
LOC: M SLEEP 20:00
PROVIDERS: ATTEND Internal Medicine Critical Care Medicine
DX: R06.83 Snoring (principal)